=== PATIENT | male | born 1960 | race Caucasian/White ===

== ENCOUNTER → 2021-05-08 | Outpatient (CLI) | payer BC | LOC: RAD 12:06 | PROVIDERS: ATTEND Pediatrics | DX: R91.8 Other nonspecific abnormal finding of lung field (principal) ==

== ENCOUNTER → 2021-06-27 | Outpatient (CLI) | payer BC, OTHER | LOC: CAT 10:32 | PROVIDERS: ATTEND Pediatrics | DX: J98.11 Atelectasis (principal); R91.8 Other nonspecific abnormal finding of lung field; K76.89 Other specified diseases of liver ==